=== PATIENT | female | born 1985 | race Caucasian/White ===

== ENCOUNTER 2022-04-03 17:48 | Emergency (ER) | payer OTHER, SELFPAY ==
[2022-04-03 18:00] VITALS: BP 118/79; PULSE 97; RESP 18; TEMP 36.7; O2SAT 100
--- NOTE | 2022-04-03 18:31 | ED.URI ---
HPI - URI/Sore Throat General Chief Complaint: Upper Respiratory Infection Stated Complaint: cough headache congestion Time Seen by Provider: 04/03/22 18:21 Source: patient Mode of arrival: ambulatory Limitations: no limitations History of Present Illness HPI Narrative: Patient presents today complaining of a one-week history of nasal congestion and pressure, postnasal drip, fatigue, headache, left ear pain. Denies fever. Reports symptoms have been progressively worsening since day 5 of illness. Denies shortness of breath. She has been taking DayQuil and NyQuil without relief. Related Data Home Medications Medication Instructions Recorded Confirmed No Home Medications 04/03/22 04/03/22 Allergies Allergy/AdvReac Type Severity Reaction Status Date / Time No Known Allergies Allergy Verified 04/03/22 18:05 Review of Systems Review of Systems: CONSTITUTIONAL: Denies body aches, fever, chills, or sweats.+ fatigue EYES: Denies visual changes, redness, or discharge. ENT: Denies rhinorrhea. + congestion, postnasal drip, left ear pain CARDIOVASCULAR: Denies chest pain, palpitations, or edema. RESPIRATORY: Denies dyspnea.+ cough GASTROINTESTINAL: Denies abdominal pain, nausea, vomiting, or diarrhea. GENITOURINARY: Denies dysuria or hematuria. SKIN: Denies rash, itching, or wounds. MUSCULOSKELETAL: Denies back pain, joint pain, or myalgia. NEUROLOGIC: Denies numbness, tingling, or weakness.+ headache PSYCH: Denies depression or anxiety. PMFSH Comments At time of signature, I have reviewed and agree with nursing past medical, surgical, social and family history unless otherwise noted. Please see nursing chart for further information. There is no relevant family history pertinent to the presenting complaint Exam Narrative: GENERAL: Mildly ill-appearing, well-nourished, and in no acute distress. HEAD: Normocephalic, atraumatic. EYES: EOMI. No redness or drainage. Conjunctivae normal. ENT: Mucous membranes pink and moist. Nares congested. Bilateral nasal turbinates are erythematous and edematous. Left frontal sinus tenderness. TMs normal bilaterally. Throat normal. Uvula midline. NECK: Normal AROM. Supple. No lymphadenopathy. CHEST: No respiratory distress. Clear to auscultation. HEART: Regular rate and rhythm. No murmur appreciated. Normal peripheral pulses. EXTREMITIES: Normal range of motion. No edema. SKIN: Warm, dry, no rash. Capillary refill normal. Normal skin turgor. NEURO: No focal deficits. Alert and oriented x3. Gait steady. PSYCH: Normal affect. No signs of depression or anxiety. Course Course Level of Care: Express Care Visit Vital Signs Vital signs: Vital Signs Temperature 98.1 F 04/03/22 18:00 Pulse Rate 97 04/03/22 18:00 Respiratory Rate 18 04/03/22 18:00 Blood Pressure 118/79 04/03/22 18:00 Pulse Oximetry 100 04/03/22 18:00 Oxygen Delivery Room Air 04/03/22 18:00 Temperature 98.1 F 04/03/22 18:00 Pulse Rate 97 04/03/22 18:00 Respiratory Rate 18 04/03/22 18:00 Blood Pressure 118/79 04/03/22 18:00 Pulse Oximetry 100 04/03/22 18:00 Oxygen Delivery Room Air 04/03/22 18:00 Reviewed MDM - URI/Sore Throat Differential Diagnosis Differential diagnosis: Likely upper respiratory infection, otitis media, sinusitis, viral infection and bronchitis Critical Care Time Critical Care Time Critical Care Time: No Discharge Plan Discharge Clinical Impression: Acute bacterial sinusitis Patient Disposition: Home, Self-Care Condition: Stable Instructions: Antibiotic Form, Sinusitis (ED) Additional Instructions: Please take the amoxicillin as prescribed until gone. You may want to consider taking some Sudafed (pseudoephedrine ) For your sinus pressure. Follow-up with your doctor next week if symptoms are not improving. Prescriptions: No Action No Home Medications Follow-up/Referrals: PHYSICIAN,[facility] [Primary Care Pr
== END 2022-04-03 18:40 | disposition home or self-care (01) ==
PROVIDERS: Emergency Provider Nurse Practitioner
DX: J01.90 Acute sinusitis, unspecified (principal); B96.89 Other specified bacterial agents as the cause of diseases classified elsewhere
CPT/HCPCS: 99202; G0463

== ENCOUNTER 2025-01-09 14:19 | Emergency (ER) | payer OTHER, SELFPAY ==
--- OUTSIDE RECORDS SUMMARY | 2025-01-09 14:23 | XMS_ITS | Clinical Summary ---
Author Organization [facility] Address [address] [place] [address] Phone Care Team Providers Care Bait Digger Name Role Phone Provider, None Primary Care Provider Unavailabl e Allergies Active Allergy Reactions Criticality Noted Date Comments Amoxicillin Nausea Low 06/24/2017 Medications HYDROcodone-albaro taminophen ([place]) 7.5-325 MG TabletIndicatio ns:Pain due to dental caries Take 1 Tablet by mouth every 6 hours as needed for Severe pain. 30 Tablet 3 Active naloxone HCl (Narcan) 4 MG/0.1ML Liquid 1 [place] by Nasal route as needed for Opioid Reversal (opioid overdose). administer for symptoms of overdose (severe sleepiness, breathing problems, not responsive). Call 911. May use additional dose to repeat 1 spray intranasally in 2-3 minutes if needed. 2 Each 3 Active pantoprazole (PROTONIX) 40 MG Tablet Delayed Response Take 1 Tablet by mouth daily. 30 Tablet 3 Active HYDROcodone-albaro taminophen (NORCO) 5-325 MG TabletIndicatio ns:Epigastric pain Take 1-2 Tablets by mouth every 4 hours as needed for Moderate or more severe pain. 12 Tablet 3 Active Active Problems No known active problems Immunizations Immunization Administration Dates Next Due TDAP Vaccine 01/01/2017 Social History Tobacco Use Types Packs/Day Years Used Date Smoking Tobacco: Every Day Cigarettes Smokeless Tobacco: Never Alcohol Use Standard Drinks/Week Comments Yes 0 (1 standard drink = 0.6 oz pur e alcohol) socially Comments No Sex and Gender Information Value Date Recorded Sex Assigned at Not on file Legal Sex Female 9:46 PM CDT Gender Identity Not on file Sexual Orientation Not on file Last Filed Vital Signs Vital Sign Reading Time Taken Comments Blood Pressure 100/55 02/17/2023 2:15 PM CDT Pulse 45 02/17/2023 2:15 PM CDT Temperature 36.3 C (97.4 F) 02/17/2023 8:06 AM CDT Respiratory Rate 11 02/17/2023 2:15 PM CDT Oxygen Saturation 100% 02/17/2023 2:15 PM CDT Inhaled Oxygen Concentration - - Weight 96 kg (211 lb 10.3 oz) 02/17/2023 8:06 AM CDT Height 165.1 cm (5' 5) 02/17/2023 8:06 AM CDT Body Mass Index 35.22 02/17/2023 8:06 AM CDT Plan of Treatment Health Maintenance Due Date Last Done Comments Hepatitis C Virus (HCV) Screening 1985 Hepatitis B Immunization (1 of 3 - 19+ 3-dose series) 2004 Pneumococcal Immunization Co mbined (1 of 2 - PCV) 2004 Pap Smear 2006 Human Papillomavirus (HPV) Immunization (1 - 3-dose SCDM series) 2012 Cervical Cancer Screening (CCS) 2015 HPV/Cotest 2015 SARS-COV-2 Immunization ( - season) 2024 Influenza Immunization (#1) 2025 Td Immunization Every 10 Yea rs (Adults With 1 Tdap) 01/01/2027 01/01/2017 Respiratory Syncytial Virus (RSV) Immunization (Adult) (1 - 1-dose 75+ series) 2060 DTaP/Tdap/Td Immunization Discontinued 01/01/2017 Meningococcal Immunization (ACWY) Aged Out No longer eligible based on patient's age to complete this topic Rotavirus Immunization Aged Out No lo nger eligible based on patient's age to complete this topic Insurance MEDICAID [employer] Care Teams Bait Digger Relationship Specialty Start Date End Date Provider, None [place] PCP - General 01/01/17
--- OUTSIDE RECORDS SUMMARY | 2025-01-09 14:23 | XMS_ITS | Clinical Summary ---
Author Organization [facility] Address [address] [place] [address] Phone Care Team Providers Care Vise Hand Name Role Phone Durga Campos MD Primary Care Provider [phone] Allergies No known active allergies Medications azithromycin (ZITHROMAX Z-DIMPLE) 250 mg Oral tablet Take 2 tabs the first day and 1 tab days 2-5 1 Package None 2 Active fluticasone (FLONASE) 50 mcg/spray Both Nostril SpSn Administer 2 Sprays in each nostril daily. 1 Gram None 2 Active oxyCODONE-aceta minophen (PERCOCET) 5-325 mg Oral tablet Take 1 Tab by mouth every 4 hours as needed for Pain, Moderate. 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 Gender Identity Not on file Sexual Orientation Not on file Last Filed Vital Signs Vital Sign Reading Time Taken Comments Blood Pressure 103/62 02/03/2012 9:58 PM CDT Pulse 86 02/03/2012 9:58 PM CDT Temperature 36.1 C (96.9 F) 02/03/2012 9:58 PM CDT Respiratory Rate 16 02/03/2012 9:58 PM CDT Oxygen Saturation 96% 02/03/2012 9:58 PM CDT Inhaled Oxygen Concentration - - Weight 86.2 kg (190 lb) 02/03/2012 6:13 PM CDT Height 165.1 cm (5' 5) 02/03/2012 6:13 PM CDT Body Mass Index 31.62 02/03/2012 6:13 PM CDT Plan of Treatment Health Maintenance Due Date Last Done Comments DTAP/TDAP/TD VACCINES (1 - Tdap) 2004 HEPATITIS B VACCINES (1 of 3 - 19+ 3-dose series) 05/2004 HPV/Cotest (21-29) 2006 HPV VACCINES (1 - 3-dose SCDM series) 2012 CERVICAL CANCER SCREENING 2015 HPV/Cotest (30-65) 2015 PAP SMEAR 2015 INFLUENZA VACCINE (#1) 2024 Insurance [employer] PPO [id number] Care Teams Vise Hand Relationship Specialty Start Date End Date Durga Campos MD PCP - General 05/07/15
[2025-01-09 14:32] VITALS: BP 122/75; PULSE 68; RESP 20; TEMP 36.3; O2SAT 100
== END 2025-01-09 15:40 | disposition left against medical advice (07) ==
PROVIDERS: Emergency Provider Nurse Practitioner
DX: R22.2 Localized swelling, mass and lump, trunk (principal)
CPT/HCPCS: 99199